=== PATIENT | male | born 1990 | race Hispanic/Latino ===

== ENCOUNTER 2017-07-10 00:41 | Emergency (ER) | payer BC, OTHER ==
[2017-07-10] MEDS ORDERED: KETOROLAC TROMETHAMINE 30MG/ML ONE (01:25)
[2017-07-10 01:33] LABS: APPEARANCE,URINE Clear (CLEAR); BILIRUBIN,URINE Negative (NEGATIVE); COLOR,URINE Yellow (YELLOW); GLUCOSE, URINE (UA) Negative (NEGATIVE); KETONES,URINE Trace mg/dL (NEGATIVE); LEUKOCYTE ESTERASE ,URINE Negative (NEGATIVE); NITRATE,URINE Negative (NEGATIVE); OCCULT BLOOD,URINE Negative (NEGATIVE); PROTEIN,URINE Negative (NEGATIVE)
== END 2017-07-10 03:44 | disposition home or self-care (01) ==
LOC: EDH 00:41
DX: N50.811 Right testicular pain (principal)
CPT/HCPCS: 76870; 81003; 87486; 87797; 96372; 99285; J1885